=== PATIENT | female | born 1950 | race Caucasian/White ===

== ENCOUNTER 2020-10-20 22:38 | Inpatient (IN) | payer MEDICARE ==
[~2020-10-20] VITALS: Ht 144.8 cm; Wt 57.2 kg
[~2020-10-20 22:38] MED LIST: ACID REDUCER150 MG PO; CALCIUM600 MG PO; COLACE 100MG C100 MG PO; CYCLOBENZAPRINE10 MG PO; ECOTRIN81 MG PO; ELIQUIS 2.5 MG2.5 MG PO; HABITROL 21 MG P1 EA TD; IPRAT-ALBUT 0.5-3 ML NEB; LASIX20 MG PO; NEURONTIN 400400 MG PO; NEURONTIN800 MG PO; NORCO 5-325 TA1 EACH PO; OMEGA-3 1,0501 EACH PO; PANTOPRAZOLE SO40 MG PO; PERCOCET 10-321 EACH PO; POLYETHYLENE GL17 GM PO; PREDNISONE5 MG PO; PRENATAL VITAM1 EAC3 PO; VITAMIN B-122500 MCG SL; VITAMIN D-32000 UNIT PO
[2020-10-21 02:32] LABS: HEMOGLOBIN 14.6 gm/dl (12.3-15.3); RED BLOOD COUNT 4.34 M/UL (4.00-5.10); WHITE BLOOD COUNT 11.6 K/UL (4.5-11.0)
[2020-10-21 02:44] LABS: BUN/CREATININE RATIO 28 (0-10)
[2020-10-21] MEDS ORDERED: LASIX20 MG PO (03:22)
[2020-10-21] MEDS ORDERED: NORVASC5 MG PO (03:22)
[2020-10-21] MEDS ORDERED: MUCINEX600 MG PO (03:23)
[2020-10-21] MEDS ORDERED: CYCLOBENZAPRINE10 MG PO (03:26)
[2020-10-21] MEDS ORDERED: DULERA 100 MCG8.8 GM INH (14:12)
[2020-10-21] MEDS ORDERED: OXYCODONE-ACET1 EACH PO (14:13)
[2020-10-21 16:04] LABS: HEMOGLOBIN 13.7 gm/dl (12.3-15.3); RED BLOOD COUNT 4.12 M/UL (4.00-5.10); WHITE BLOOD COUNT 11.3 K/UL (4.5-11.0)
[2020-10-21 16:32] LABS: BUN/CREATININE RATIO 23 (0-10)
[2020-10-21] MEDS ORDERED: ALENDRONATE SOD70 MG PO (18:51)
[2020-10-22 06:29] LABS: HEMOGLOBIN 12.9 gm/dl (12.3-15.3); RED BLOOD COUNT 3.94 M/UL (4.00-5.10); WHITE BLOOD COUNT 12.1 K/UL (4.5-11.0)
[2020-10-22 06:51] LABS: BUN/CREATININE RATIO 31 (0-10)
[2020-10-23 03:37] LABS: HEMOGLOBIN 12.4 gm/dl (12.3-15.3); RED BLOOD COUNT 3.77 M/UL (4.00-5.10); WHITE BLOOD COUNT 9.4 K/UL (4.5-11.0)
[2020-10-23 03:57] LABS: BUN/CREATININE RATIO 20 (0-10)
[2020-10-24 03:16] LABS: HEMOGLOBIN 11.8 gm/dl (12.3-15.3); RED BLOOD COUNT 3.69 M/UL (4.00-5.10); WHITE BLOOD COUNT 10.5 K/UL (4.5-11.0)
[2020-10-24 04:56] LABS: BUN/CREATININE RATIO 20 (0-10)
[2020-10-26 08:12] LABS: HEMOGLOBIN 12.9 gm/dl (12.3-15.3); RED BLOOD COUNT 3.87 M/UL (4.00-5.10)
[2020-10-26 08:29] LABS: BUN/CREATININE RATIO 24 (0-10)
[2020-10-27 07:08] LABS: HEMOGLOBIN 12.3 gm/dl (12.3-15.3); RED BLOOD COUNT 3.78 M/UL (4.00-5.10); WHITE BLOOD COUNT 10.1 K/UL (4.5-11.0)
[2020-10-27 07:26] LABS: BUN/CREATININE RATIO 21 (0-10)
[2020-10-27] MEDS ORDERED: ENOXAPARIN40 MG/0.4 SC (12:02)
[2020-10-27] MEDS ORDERED: HYDROCODON-ACE1 EAC2 PO (14:40)
--- NOTE | 2020-10-27 15:01 | NUR ---
AROUND 1300 DR. HARPER CALLED DUE TO PT NOT HAVING ANY PRESCRIPTIONS FOR PAIN MED AT DISCHARGE. DR HARPER STATED WAS SCRUBBING IN FOR A SPINE SURGERY AND ASKED IF I COULD CALL HOSPITALIST HE DIDN'T HAVE TIME AT MOMENT TO ADDRESS THIS.
== END 2020-10-27 15:23 | disposition home or self-care (01) | DRG 522 ==
LOC: ER1 22:38 → M/S 10-21 01:03 → CDU 10-21 01:03 → M/S 10-21 02:58
PROVIDERS: Internal Medicine; Orthopaedic Surgery; Physician Assistant; ADMIT Internal Medicine
PROC: 0SRS0J9 Replacement of Left Hip Joint, Femoral Surface with Synthetic Substitute, Cemented, Open Approach (ICD-10-PCS; principal; 2020-10-21 13:01)
DX: S72.002A Fracture of unspecified part of neck of left femur, initial encounter for closed fracture (principal); W01.0XXA Fall on same level from slipping, tripping and stumbling without subsequent striking against object, initial encounter; J44.9 Chronic obstructive pulmonary disease, unspecified; M81.0 Age-related osteoporosis without current pathological fracture; E87.6 Hypokalemia; I10 Essential (primary) hypertension; Z20.822 Contact with and (suspected) exposure to COVID-19; M06.9 Rheumatoid arthritis, unspecified; F17.210 Nicotine dependence, cigarettes, uncomplicated; Z96.641 Presence of right artificial hip joint; Z96.651 Presence of right artificial knee joint; Z91.041 Radiographic dye allergy status; Z82.49 Family history of ischemic heart disease and other diseases of the circulatory system; Z90.49 Acquired absence of other specified parts of digestive tract; Y93.89 Activity, other specified; Z90.710 Acquired absence of both cervix and uterus
CPT/HCPCS: 36415; 71045; 72170; 73502; 73552; 73560; 73700; 80048; 80053; 83735; 85025; 85027; 85610; 85730; 86850; 86900; 86901; 93005; 94640; 94664; 94760; 96374; 96375; 96376; 97110-GP-CQ; 97116-GP-CQ; 97161; 97166; 97530-GP-CQ; 97535; 99283; C1776; J0690; J1100; J1650; J2001; J2270; J2370; J2405; J2704; J2795; J3010; J3370; J7120; U0002

== ENCOUNTER → 2020-12-11 | Outpatient (CLI) | payer MEDICARE ==
[~2020-12-11] MED LIST changes: +ALENDRONATE SOD70 MG PO; +DULERA 100 MCG8.8 GM INH; +ENOXAPARIN40 MG/0.4 SC; +HYDROCODON-ACE1 EAC2 PO; +MUCINEX600 MG PO; +NORVASC5 MG PO; +OXYCODONE-ACET1 EACH PO
== END ==
LOC: KOH-I 13:00
DX: Z13.6 Encounter for screening for cardiovascular disorders (principal); R22.42 Localized swelling, mass and lump, left lower limb; G89.18 Other acute postprocedural pain
CPT/HCPCS: 93971

== ENCOUNTER → 2021-04-15 | Outpatient (CLI) | payer OTHER | LOC: EXRD 10:09 | DX: M81.8 Other osteoporosis without current pathological fracture (principal) | CPT/HCPCS: 77080 ==